=== PATIENT | female | born 1970 | race Caucasian/White ===

== ENCOUNTER 2020-04-19 12:32 | Emergency (ER) | payer OTHER, SELFPAY ==
[2020-04-19 13:06] VITALS: BP 120/83; PULSE 72; RESP 14; TEMP 36.9; O2SAT 98
[2020-04-19] MEDS: KETOROLAC (*BKC) 60 MG/2 ML VIAL 30 MG IM (13:59)
[2020-04-19] MEDS: MORPHINE SULFATE INJ (*CRX) 10 MG/ML AMP 4 MG IM (14:03)
[2020-04-19] MEDS: CYCLOBENZAPRINE HCL 10 MG TABLET PO (14:04)
--- NOTE | 2020-04-19 14:31 | ED.BACK ---
HPI - Back Pain/Injury General Chief Complaint: Back Pain/Injury Stated Complaint: lower back pain Source: family Mode of arrival: ambulatory Limitations: no limitations History of Present Illness HPI Narrative: Kamran is a 49F with a history of lumbar sprains, migraines and anxiety that presented with back pain. She went to picker/puller a dog bowel yesterday and had immediate cramping in the low back. She has had intense low back spasm/pain since. It does not radiate. No loss of bowel/bladder control, no paresthesias, paralysis or weakness. No other injures or medical concerns. Related Data Home Medications Medication Instructions Recorded Confirmed fluoxetine 60 mg PO DAILY 04/19/20 04/19/20 rivaroxaban [Xarelto] 10 mg PO DAILY 04/19/20 04/19/20 Allergies Allergy/AdvReac Type Severity Reaction Status Date / Time acetaminophen [From Vicodin] Allergy Itching Verified 04/19/20 13:14 hydrocodone [From Vicodin] Allergy Itching Verified 04/19/20 13:14 Review of Systems Constitutional: Constitutional: Denies chills, Denies fatigue, Denies fever(s) and Denies weakness Eyes: Eyes: Reports no additional eye complaints ENT: Reports system reviewed and no additional complaints, except as documented Cardiovascular: Cardiovascular: Reports no additional cardiovascular complaints Respiratory: Respiratory: Reports no additional respiratory complaints Gastrointestinal: Gastrointestinal: Reports no additional gastrointestinal complaints Genitourinary: Genitourinary: Reports no additional female genitourinary complaints Musculoskeletal: Musculoskeletal: Reports as per HPI Integumentary/Breasts: Skin/Breast: Reports system reviewed and no additional complaints, except as docu Neurologic: Reports system reviewed and no additional complaints, except as documented Psychiatric: Psychiatric: Reports no additional psychiatric complaints Endocrine: Endocrine: Reports no additional endocrine complaints Hematologic/Lymphatic: Hematologic/Lymphatic: Reports no additional hematologic/lymphatic complaints Allergic/Immunologic: Allergic/Immunologic: Reports no additional allergic/immunologic complaints [facility] Social History Social History Gender identity (if verbalized by the patient): Female Exam Const: General: healthy appearing and alert Orientation/consciousness: patient oriented x3 Limitations: altered mental status Other: mild distress HENMT: Other: normocephalic, atraumatic Eyes: Conjunctivae: conjunctivae normal Pupils: Equal, round and reactive pupils present Neck: Neck: normal visual inspection Resp: Effort & Inspection: normal respiratory effort, not labored and no use of accessory muscles Cardio: Rate: regular rate GI: Inspection: non-distended Other: No TTP : General: Yes no CVA tenderness Back/Spine/Pelvis: Other: no midline tenderness, globally decreased range of motion in the lumbar spine, hypertonic paraspinal musculature, negative straight leg test bilaterally, no deformity, no contusions or injuries Skin: General skin exam: normal color Rashes: no rashes Neuro: General: patient oriented x3 and moves all extremities Other: Has sensation intact in all dermatomes of the lower extremity, has 5/5 strength throughout the lower extremities bilaterally Extrem: General: normal to inspection Psych: Mental Status: mental status grossly normal Course Course Emergency Course: Kamran was seen and evaluated. she was given cyclobenzaprine, Toradol and morphine for the pain. She did not believe her pain was any better when asked however she appeared more comfortable and ambulated better. she feels safe going home with a muscle relaxer and a prescription for [place]. She continued to have no red flag signs or symptoms. She was discharged with a script for Flexeril and [place] then discharged to f/u with her PCP. Vital Signs Vital signs: Vital S
[2020-04-19 14:34] VITALS: BP 118/71; PULSE 82; RESP 16; O2SAT 98
== END 2020-04-19 14:37 | disposition home or self-care (01) ==
PROVIDERS: Emergency Provider Family Medicine; PCP Family Medicine
DX: S39.012A Strain of muscle, fascia and tendon of lower back, initial encounter (principal); X50.1XXA Overexertion from prolonged static or awkward postures, initial encounter
CPT/HCPCS: 96372; 99283; 99284; A9270; J1885; J2270

== ENCOUNTER 2021-08-23 17:05 | Outpatient (CLI) | payer OTHER, SELFPAY ==
[2021-08-23 17:44] LABS: Add Urine Microscopic? YES; Appearance Urine Sl Cloudy (Clear); Bilirubin Urine Negative (Negative); Blood Urine 3+ (Negative); Color Urine Light Yellow (Yellow); Glucose Urine UA Negative (Negative); Ketones Urine Negative (Negative); Leukocyte Esterase Ur 1+ (Negative); Nitrate Urine Negative (Negative); Protein Urine Negative (Negative); Specific Grav Ur 1.025 (1.010-1.020); Urobilinogen Urine 0.2 mg/dL (0.2-1.0); pH Urine 6.5 (5.0-8.0)
[2021-08-23 18:10] LABS: Bacteria Urine 1+ /hpf; Squamous Epithelial Cell Urine Few /hpf (Few); WBC Urine 16-20 /hpf (0-3)
== END 2021-08-23 17:06 | disposition home or self-care (01) ==
LOC: CHSLAB 17:08
PROVIDERS: PCP Family Medicine
DX: R39.9 Unspecified symptoms and signs involving the genitourinary system (principal)
CPT/HCPCS: 81001; 87086

== ENCOUNTER 2021-12-24 07:45 | Outpatient (RCR) | payer OTHER, SELFPAY ==
--- NOTE | 2021-12-24 08:36 | OTOPEVAL ---
Thank you for referring Kamran Todd to [facility].? The patient is scheduled to be seen for therapy? ____x/week for ___ weeks. Please review, sign, date and return this plan of care KEITH. I agree with and certify that the following plan of care is medically necessary. Referring Physician Date Admitting Provider: Attending Provider: Gelacio David Referring Provider: PavithraOT Outpatient Evaluation Start: 12/24/21 07:13 Freq: Status: Active Protocol: Document 12/24/21 07:14 [facility] (Rec: 12/24/21 08:36 [facility] [id number]) Therapy Assessment Status Assessment Status Assessment Status Evaluation Outpatient Past Medical History Neurological History Hx Migraine Yes Respiratory History Hx Pulmonary Embolism Yes Psychosocial History Hx Anxiety Yes Evaluation Information Problem Diagnosis carpal tunnel syndrome of right wrist, trigger finger of right thumb Onset 12/20/21 Subjective Information Patient had R CTR release and Query Text:As Reported By Patient/ R trigger thumb release on . Patient arrives today and reports that typing, driving, sleeping, doing her hair, and carrying objects have all been very difficult secondary to Carpal tunnel and trigger finger. Patient also states that she has not been doing much with her R hand since surgery on but states that it feels difficult to move. 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 Patient is currently off of work and returns to the doctor on to get stitches out. QUICK DASH: 68.2% Prior Level of Function Activity Level (Last 3 Months) Occupation art consultant at [employer] Hand Dominance Right Activity of Daily Living Ability Independent Indoor/Home Mobility Independent Community Mobility Independent Stairs Ability Independent Functional Cognition (Planning, Shopping Independent , Taking Medications) Cooking Yes Cleaning Yes Laundry Yes Sh
--- NOTE | 2022-02-12 17:08 | PCOTNOTE ---
Patient is discharged from skilled OT services at this time. Patient did not wish to schedule any additional appointments secondary to lack of concerns. See last OT treatment note for skills at discharge. MS
== END 2022-01-22 09:02 | disposition home or self-care (01) ==
LOC: CHSOT 07:45
PROVIDERS: PCP Family Medicine
DX: G56.01 Carpal tunnel syndrome, right upper limb (principal); M65.311 Trigger thumb, right thumb
CPT/HCPCS: 97035; 97110; 97140; 97165

== ENCOUNTER 2023-11-07 08:10 | Outpatient (CLI) | payer OTHER, SELFPAY ==
[2023-11-07 08:47] LABS: Appearance Urine Sl Cloudy (Clear); Bilirubin Urine Negative (Negative); Blood Urine Trace-intact (Negative); Color Urine Light Yellow (Yellow); Glucose Urine UA Negative (Negative); Ketones Urine Negative (Negative); Leukocyte Esterase Ur 1+ LEU/UL (Negative); Nitrate Urine Negative (Negative); Protein Urine 1+ (Negative); Specific Grav Ur 1.025 (1.010-1.020); Urobilinogen Urine 0.2 mg/dL (0.2-1.0)
[2023-11-07 08:55] LABS: Add Urine Microscopic? YES; Bacteria Urine 1+ /hpf; Mucus Urine Few /lpf; RBC Urine 0-2 /hpf (0-2); Squamous Epithelial Cell Urine Few /hpf (Few); WBC Urine 31-50 /hpf (0-3)
== END 2023-11-07 08:11 | disposition home or self-care (01) ==
PROVIDERS: PCP Family Medicine
DX: R39.9 Unspecified symptoms and signs involving the genitourinary system (principal); R82.90 Unspecified abnormal findings in urine
CPT/HCPCS: 81001; 87077; 87086; 87088; 87186

== ENCOUNTER 2023-11-10 08:27 | Outpatient (RCR) | payer OTHER, SELFPAY ==
--- NOTE | 2023-11-10 08:03 | PTOPEVAL1 ---
Assessment and note entered by Royal Cameron Evaluation Information Assessment Status Evaluation Diagnosis right side low back pain Onset 08/04/23 Subjective Information Pt. reports she was traveling to [place] at the beginning of the year. She states that she developed pain in the low back and down the right leg to the foot. She reports she has seen her family doctor and underwent x-ray. She reports that her x-ray showed some arthritic change. She states that pain will wake her at night and describes pain down the right thigh as burning and stabbing. She report that standing for greater than 30-45 minutes increases her pain and sitting for long durations will increase her pain. She reports that she has improved since the onset of pain. She reports that she cannot travel due to her pain and avoids long car rides. She is currently retired. Pt. reports that her goal is to decrease her back and leg pain. Reported Pain Level Pain Score 4: Self Report Assessment PT Clinical Summary Pt. is a 53 year old female who enters the clinic with right lumbar radiculopathy. Initiated extension category exercises to address discogenic pain. Pt. currently presents with impaired l.e. strength, impaired mobility, functional decline and pain. Continued skilled PT is indicated in order to improve these areas to allow for improve comfort with IADL performance. Plan of Care Interventions Electrical Stimulation,Hot Pack/Cold Pack,Manual Therapy,Mechanical Traction,Neuro Re-education, Patient/Caregiver Educati,Therapeutic Activities, Therapeutic Exercise PT Services Indicated Yes Treatment Frequency and 2x/week x 8 visits Duration These treatments will address the objective and functional deficits as defined above. The patient will be advanced safely and appropriately in order for the patient to progress towards his/her prior level of function. Additional exercises will be introduced and as well as a comprehensive home exercise program upon discharge, if needed, ?to ensure carryover of functional gains achieved in the clinic. This treatment plan has been reviewed and agreement upon by the patient.
--- NOTE | 2023-11-10 08:28 | OPREHPOC ---
Outpatient Therapy Plan of Care This is a Multidisciplinary Plan of Care that may contain components documented by all disciplines (PT, OT, and ST.) PT Problem 1 PT Problem #1 Knowledge Deficit PT Goal 1 Goal Independent with a HEP addressing mobility and strength Target Visit 2 PT Problem 2 PT Problem #2 Pain PT Goal 1 Goal Pt. will reduce pain to 3/10 at worst with long periods of sitting and standing. Target Visit 8 PT Problem 3 PT Problem #3 Impaired Functional Mobil PT Goal 1 Goal -Pt. will demonstrate the ability to safely complete floor to waist lifts with proper mechanics with 10-20# object for 10 reps -Pt. will demonstrate less than 30% limitation on the Modified Oswestry -Pt. will be able to sleep through the night without reported pain disturbance. Target Visit 8 PT Problem 4 PT Problem #4 Impaired Strength PT Goal 1 Goal Pt. will present with 4+/5 or greater gross right l.e. strength. Target Visit 8
--- NOTE | 2023-11-26 07:32 | PCPTNOTE ---
No call no show. Voicemail left for patient to reschedule.
--- NOTE | 2023-12-03 07:59 | OPREHPOC ---
Outpatient Therapy Plan of Care This is a Multidisciplinary Plan of Care that may contain components documented by all disciplines (PT, OT, and ST.) PT Problem 1 PT Problem #1 Knowledge Deficit PT Goal 1 Goal Independent with a HEP addressing mobility and strength Target Visit 2 Progress Met PT Problem 2 PT Problem #2 Pain PT Goal 1 Goal Pt. will reduce pain to 3/10 at worst with long periods of sitting and standing. Target Visit 8 Progress Met PT Problem 3 PT Problem #3 Impaired Functional Mobil PT Goal 1 Goal -Pt. will demonstrate the ability to safely complete floor to waist lifts with proper mechanics with 10-20# object for 10 reps -Pt. will demonstrate less than 30% limitation on the Modified Oswestry. right at 30% -Pt. will be able to sleep through the night without reported pain disturbance. Target Visit 8 Progress Met PT Problem 4 PT Problem #4 Impaired Strength PT Goal 1 Goal Pt. will present with 4+/5 or greater gross right l.e. strength. Target Visit 8 Progress Met
--- NOTE | 2023-12-03 08:00 | PTOPREEVAL ---
Assessment and note entered by JT File, PT Evaluation Information Assessment Status Re-evaluation Diagnosis right side low back pain Onset 08/04/23 Subjective Information patient reports she feels great today. she reports she has had no more than 3/10 pain at worst in the R lower back in the last week. she reports she is back to laying, sitting, and standing as long as she wants. she reports she is also back to sleep through the night she reports she has been compliant with her HEP. she reports she is getting ready to go on a trip that will be a significant amount of driving. she reports she would like to leave her chart open until she is back from her trip to make sure she does not have any flare ups. Reported Pain Level Pain Score 0: Self Report Assessment PT Clinical Summary mrs. corona presents to skilled PT services today for her 6th of 8 PT visits on her current POC. she reports she would like to hold therapy at this time to allow to assess tolerance for full return to activities, including long drives and travel. she has met all goals for skilled PT as of this date. however, due to the nature of her last flare up coming from travel/driving issues, patient's chart will be held open for 2 weeks. she was instructed to follow up with PT with any return of issues, otherwise it will be DC'd after 2 weeks. Plan of Care Interventions Electrical Stimulation,Hot Pack/Cold Pack,Manual Therapy,Mechanical Traction,Neuro Re-education, Patient/Caregiver Educati,Therapeutic Activities, Therapeutic Exercise PT Services Indicated Yes Treatment Frequency and hold therapy at this time. patient to trial Duration traveling again. if she has no issues flare up, DC in 2 weeks. These treatments will address the objective and functional deficits as defined above. The patient will be advanced safely and appropriately in order for the patient to progress towards his/her prior level of function. Additional exercises will be introduced and as well as a comprehensive home exercise program upon discharge, if needed, ?to ensure carryover of functional gains achieved in the clinic. This treatment plan has been reviewed and agreement upon by the patient.
--- NOTE | 2024-01-28 14:46 | PCPTNOTE ---
Mrs. Todd attended a total of 6 treatment sessions from 11/10/23 to 12/03/23. She has failed to return to the clinic at this time and will be discharged from our care. Refer to the last daily note for patient discharge status.
== END 2023-12-03 08:57 | disposition home or self-care (01) ==
LOC: CHSPT 08:27
DX: M54.16 Radiculopathy, lumbar region (principal)
CPT/HCPCS: 97012; 97014; 97110; 97140; 97161; G0283

== ENCOUNTER 2024-12-23 23:49 | Emergency (ER) | payer OTHER, SELFPAY ==
--- NOTE | ~2024-12-23 | XR_ITS ---
Clinical Indication: Chest discomfort PA and lateral views of the chest: Comparison: None Findings: The lungs are clear, without evidence of focal consolidation or pleural effusion. Cardiome diastinal silhouette is within normal limits. Bones and soft tissues are unremarkable. Impression: Normal chest. Reviewed, dictated and finalized at location . Impression: Normal chest.
--- OUTSIDE RECORDS SUMMARY | 2024-12-23 23:52 | XMS_ITS | Continuity of Care Document ---
Author Organization [facility]. If a dditional information is needed, contact Health Information Management at [phone] [place] [address] Phone Care Team Providers Care Senior Software Analyst Name Role Phone Unavailable Unavailable Unavailable Unavailable Unavailable Unavailable Unavailable Unavailable Unavailable Problems Acute sciatica Onset:08-Sep-2023 Wade Queen MD Allergies and Adverse Reactions No Known Drug Allergies(Julio César rgy) Onset: 12-Sep-2023 Medications water 1000 MG/ML Injectable Solution;2 MILLILITER ASDIR Quantity:1 Wade Queen MD Start:12-Sep-2023 Comments:[id number] Administration Instructions:*For reconstituting SOLU-MEDROL* FLUoxetine 10 MG Oral Capsule;10 MILLIGRAM PO DAILY Start:12-Sep-2023 Comments:10 MG PO DAILY rivaroxaban 10 MG Oral Tablet [Xarelto];10 MILLIGRAM PO DAILY Start:12-Sep-2023 Comments:10 MG PO DAILY FLUoxetine 20 MG Oral Capsule;20 MILLIGRAM PO DAILY Start:12-Sep-2023 Comments:20 MG PO DAILY buPROPion hydrochloride 75 MG Oral Tablet;150 MILLIGRAM PO DAILY Start:12-Sep-2023 Comments:150 MG PO DAILY atorvastatin 20 MG Oral Tablet;20 MILLIGRAM PO BEDTIME Start:12-Sep-2023 Comments:20 MG PO BEDTIME water 1000 MG/ML Injectable Solution;2 MILLILITER ASDIR Quantity:1 Wade Queen MD Start:08-Sep-2023 Comments:[id number] Administration Instructions:*For reconstituting SOLU-MEDROL* {21 (predniSONE 10 MG Oral Tablet) } Pack;10 MILLIGRAM PO DAILY Start:08-Sep-2023 Comments:10 MG PO DAILY traMADol hydrochloride 50 MG Oral Tablet;50 MILLIGRAM PO Q6H Start:08-Sep-2023 Comments:50 MG PO Q6H Social History Smoking Status Never smoked tobacco Recorded: 12-Sep-2023 Never smoked tobacco Recorded: 08-Sep-2023
[2024-12-23 23:57] VITALS: BP 169/105; PULSE 68; RESP 16; TEMP 36.8; O2SAT 100
[2024-12-24 00:01] VITALS: BP 139/107; PULSE 62; RESP 18; O2SAT 100
--- NOTE | 2024-12-24 00:07 | ED_ITS ---
HPI - Back Pain/Injury General Chief Complaint: Back Pain/Injury Stated Complaint: upper side pain Time Seen by Provider: 12/24/24 00:06 Source: patient Mode of arrival: ambulatory Limitations: no limitations History of Present Illness HPI Narrative: this is a 54-year-old female with presentation left sided rib and upper back pain with no known injury, did see her primary care doctor on Friday and with suspicion of possible shingles but since then has continued with some pain in the left rib area with some inspiration with no fever chills no shortness of breath no cough or congestion no chest pain no abdominal pain no flank pain no dysuria or hematuria. MD elicited complaint: back pain Onset (ago): day(s) Timing: constant Severity: mild Related Data Home Medications ?Medication ?Instructions ?Recorded ?Confirmed ?Last Taken ?Type fluoxetine 20 mg tablet 60 mg PO DAILY 04/19/20 04/19/20 Unknown History rivaroxaban 10 mg tablet (Xarelto) 10 mg PO DAILY 04/19/20 04/19/20 Unknown History Allergies Allergy/AdvReac Type Severity Reaction Status Date / Time acetaminophen (From Vicodin) Allergy Itching Verified 04/19/20 13:14 hydrocodone (From Vicodin) Allergy Itching Verified 04/19/20 13:14 Review of Systems Review of Systems: All systems reviewed & are unremarkable except as noted in HPI and below PMFSH Past Medical History Medical History History of pulmonary embolism Social History Social History Gender identity (if verbalized by the patient): Female Exam Const: General: healthy appearing, no acute distress and alert Nutritional Appearance: well nourished Orientation/consciousness: patient oriented x3 Limitations: no limitations Neck: Neck: normal visual inspection Chest: Chest palpation & inspection: normal inspection of the chest Resp: Effort & Inspection: normal respiratory effort Auscultation: clear to auscultation bilaterally Cardio: Rate: regular rate Rhythm: regular rhythm GI: GI Palp: Yes Soft to palpation : General: Yes bladder normal to palpation Skin: General skin exam: normal color Rashes: no rashes Wounds: no wounds Neuro: General: patient oriented x3, moves all extremities and no meningeal signs Extrem: General: normal to inspection, no clubbing, cyanosis or edema and no pedal edema Course Course Emergency Course: x-ray performed and reviewed with patient, patient received 60mg IM Toradol and reassessment pain level has improved. Vital Signs Vital signs: Vital Signs Temperature 36.8 C 12/23/24 23:57 Pulse Rate 68 12/23/24 23:57 Respiratory Rate 16 12/23/24 23:57 Blood Pressure 169/105 H 12/23/24 23:57 Pulse Oximetry 100 12/23/24 23:57 Oxygen Delivery Room Air 12/23/24 23:57 Temperature 36.8 C 12/23/24 23:57 Pulse Rate 68 12/23/24 23:57 Respiratory Rate 16 12/23/24 23:57 Blood Pressure 169/105 H 12/23/24 23:57 Pulse Oximetry 100 12/23/24 23:57 Oxygen Delivery Room Air 12/23/24 23:57 Critical Care Time Critical Care Time Critical Care Time: No Discharge Plan Discharge Clinical Impression: Pleurisy Patient Disposition: Home Condition: Stable Instructions: Antibiotic Form, Pleurisy (ED) Additional Instructions: advised to take medication as prescribed and to follow with primary care physician if symptoms persist or worsen. Patient Language: [place]orese Prescriptions: No Action fluoxetine 20 mg tablet 60 mg PO DAILY Xarelto 10 mg Tablet 10 mg PO DAILY cyclobenzaprine 10 mg tablet 10 mg PO TID Qty: 30 0RF oxycodone 5 mg tablet 5 mg PO Q8H PRN (Reason: pain) Qty: 10 0RF Follow-up/Referrals: UNKNOWN,DOCTOR [Primary Care Provider] -
[2024-12-24 00:20] VITALS: BP 125/93; PULSE 57; RESP 18; O2SAT 98
[2024-12-24] MEDS: KETOROLAC (*BKC) 60 MG/2 ML VIAL IM (00:22)
[2024-12-24] MEDS: ACYCLOVIR 200 MG CAPSULE 400 MG PO (00:35)
== END 2024-12-24 00:53 | disposition home or self-care (01) ==
LOC: CHSED 12-24 00:33
PROVIDERS: Emergency Provider Emergency Medicine
DX: R09.1 Pleurisy (principal)
CPT/HCPCS: 71046; 96372; 99283; A9270; J1885